=== PATIENT | male | born 1955 | race Caucasian/White ===

== ENCOUNTER → 2022-12-12 09:57 | Outpatient (BNVA) | payer MEDICARE, SELFPAY | PROVIDERS: PCP Internal Medicine; Visit Provider Psychiatry & Neurology Neurology | DX: R06.83 Snoring (principal); G47.10 Hypersomnia, unspecified; Z86.73 Personal history of transient ischemic attack (TIA), and cerebral infarction without residual deficits | CPT/HCPCS: 99202 ==

== ENCOUNTER → 2023-01-02 13:17 | Outpatient (REF) | payer MEDICARE, SELFPAY | LOC: HO.SL 13:17 | PROVIDERS: PCP Internal Medicine; Visit Provider Psychiatry & Neurology Neurology | DX: G47.10 Hypersomnia, unspecified (principal); R06.83 Snoring | CPT/HCPCS: 95806 ==

== ENCOUNTER 2023-02-21 14:50 | Outpatient (REF) | payer MEDICARE, SELFPAY ==
--- NOTE | ~2023-02-21 | US_ITS ---
EXAMINATION: US EXTRACRANIAL CAROTID DUPLEX, BILATERAL CLINICAL INFORMATION: Cerebral infarction. COMPARISON: None available. TECHNIQUE: Real-time ultrasound and Doppler techniques (integrating B-mode 2-D vascular images, Doppler spectral analysis and color-flow Doppler imaging) were utilized to interrogate the extracranial carotid arteries, the vertebral arteries and proximal subclavian arteries bilaterally. The degree of stenosis is determined by criteria similar to NASCET. FINDINGS: Right Side: 1. There is mild atherosclerotic plaque seen in the bifurcation/proximal ICA region. 2. The common carotid artery PSV proximally is 82 cm/s and distally 83 cm/s. 3. The proximal internal carotid artery velocities are 61 cm/s systolic and 14 cm/s diastolic. 4. The proximal external carotid artery PSV is 106 cm/s. 5. The vertebral artery shows antegrade flow. 6. The subclavian artery waveforms are normal. Left Side: 1. There is mild atherosclerotic plaque seen in the bifurcation/proximal ICA region. 2. The common carotid artery PSV proximally is 97 cm/s and distally 72 cm/s. 3. The proximal internal carotid artery velocities are 45 cm/s systolic and 11 cm/s diastolic. 4. The proximal external carotid artery PSV is 97 cm/s. 5. The vertebral artery shows antegrade flow. 6. The subclavian artery waveforms are normal. US/US carotid duplex BI IMPRESSION: 1. RIGHT: Minimal, non-hemodynamically significant stenosis of the proximal right internal carotid artery corresponding to a 0-49% stenosis by velocity criteria. 2. LEFT: Minimal, non-hemodynamically significant stenosis of the proximal left internal carotid artery corresponding to a 0-49% stenosis by velocity criteria.
== END 2023-02-21 14:51 | disposition home or self-care (01) ==
LOC: HO.US 14:50
PROVIDERS: PCP Internal Medicine; Visit Provider Psychiatry & Neurology Neurology
DX: I63.9 Cerebral infarction, unspecified (principal); I69.354 Hemiplegia and hemiparesis following cerebral infarction affecting left non-dominant side
CPT/HCPCS: 93880

== ENCOUNTER 2023-03-21 10:33 | Outpatient (AMB) | payer MEDICARE, SELFPAY ==
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
[2023-03-21 10:44] VITALS: BP 112/82; PULSE 76; O2SAT 98
== END 2023-03-21 11:20 | disposition home or self-care (01) ==
LOC: HO.HSMS 10:33
PROVIDERS: PCP Internal Medicine; Visit Provider Psychiatry & Neurology Neurology
DX: I69.354 Hemiplegia and hemiparesis following cerebral infarction affecting left non-dominant side (principal); R06.83 Snoring; G47.10 Hypersomnia, unspecified
CPT/HCPCS: 99214

== ENCOUNTER → 2023-03-21 10:33 | Outpatient (BNVA) | payer MEDICARE, SELFPAY | PROVIDERS: PCP Internal Medicine; Visit Provider Psychiatry & Neurology Neurology | DX: R06.83 Snoring (principal); G47.10 Hypersomnia, unspecified; Z86.73 Personal history of transient ischemic attack (TIA), and cerebral infarction without residual deficits; Z79.01 Long term (current) use of anticoagulants; Z79.82 Long term (current) use of aspirin | CPT/HCPCS: 99212 ==

== ENCOUNTER → 2023-04-08 20:30 | Outpatient (REF) | payer MEDICARE, SELFPAY | LOC: HO.SL 20:30 | PROVIDERS: PCP Internal Medicine; Visit Provider Psychiatry & Neurology Neurology | DX: G47.31 Primary central sleep apnea (principal); G47.10 Hypersomnia, unspecified; R06.83 Snoring | CPT/HCPCS: 95810 ==

== ENCOUNTER → 2023-04-08 21:58 | Outpatient (BNV) | payer MEDICARE, SELFPAY | PROVIDERS: PCP Internal Medicine; Visit Provider Psychiatry & Neurology Neurology | DX: I69.354 Hemiplegia and hemiparesis following cerebral infarction affecting left non-dominant side (principal); G47.37 Central sleep apnea in conditions classified elsewhere | CPT/HCPCS: 95810 ==

== ENCOUNTER 2023-07-25 09:16 | Outpatient (AMB) | payer MEDICARE, SELFPAY ==
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
[2023-07-25 09:29] VITALS: BP 152/80; PULSE 88; RESP 16; O2SAT 94; BMI 25.0
== END 2023-07-25 10:05 | disposition home or self-care (01) ==
PROVIDERS: PCP Internal Medicine; Visit Provider Psychiatry & Neurology Neurology
DX: I69.354 Hemiplegia and hemiparesis following cerebral infarction affecting left non-dominant side (principal); G47.31 Primary central sleep apnea
CPT/HCPCS: 99214

== ENCOUNTER → 2023-07-25 09:16 | Outpatient (BNVA) | payer MEDICARE, SELFPAY | PROVIDERS: PCP Internal Medicine; Visit Provider Psychiatry & Neurology Neurology | DX: Z86.73 Personal history of transient ischemic attack (TIA), and cerebral infarction without residual deficits (principal); R06.83 Snoring; G47.10 Hypersomnia, unspecified | CPT/HCPCS: 99212 ==

== ENCOUNTER 2024-02-06 08:59 | Outpatient (AMB) | payer MEDICARE, SELFPAY ==
[2024-02-06 09:20] VITALS: BP 116/68; PULSE 68; RESP 16; BMI 24.2
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
== END 2024-02-06 10:42 | disposition home or self-care (01) ==
PROVIDERS: PCP Internal Medicine; Visit Provider Psychiatry & Neurology Neurology
DX: I69.354 Hemiplegia and hemiparesis following cerebral infarction affecting left non-dominant side (principal); R06.3 Periodic breathing
CPT/HCPCS: 99214; G2211

== ENCOUNTER → 2024-02-06 08:59 | Outpatient (BNVA) | payer MEDICARE, SELFPAY | PROVIDERS: PCP Internal Medicine; Visit Provider Psychiatry & Neurology Neurology | DX: I69.354 Hemiplegia and hemiparesis following cerebral infarction affecting left non-dominant side (principal); R06.3 Periodic breathing | CPT/HCPCS: 99212 ==

== ENCOUNTER 2024-08-20 09:08 | Outpatient (AMB) | payer MEDICARE, SELFPAY ==
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
[2024-08-20 09:11] VITALS: BP 128/68; PULSE 8; O2SAT 82; BMI 24.8
== END 2024-08-20 09:49 | disposition home or self-care (01) ==
PROVIDERS: PCP Internal Medicine; Visit Provider Psychiatry & Neurology Neurology
DX: I69.354 Hemiplegia and hemiparesis following cerebral infarction affecting left non-dominant side (principal); G47.31 Primary central sleep apnea
CPT/HCPCS: 99214; G2211

== ENCOUNTER → 2024-08-20 09:08 | Outpatient (BNVA) | payer MEDICARE, SELFPAY | PROVIDERS: PCP Internal Medicine; Visit Provider Psychiatry & Neurology Neurology | DX: R06.3 Periodic breathing (principal); G47.31 Primary central sleep apnea; Z86.73 Personal history of transient ischemic attack (TIA), and cerebral infarction without residual deficits | CPT/HCPCS: 99212 ==

== ENCOUNTER → 2025-01-21 15:02 | Outpatient (REF) | payer MEDICARE, SELFPAY ==
--- OUTSIDE RECORDS SUMMARY | 2025-01-21 15:42 | XMS_ITS | Clinical Summary ---
Author Organization [facility] Address [address] [place] [address] Care Team Providers Care Cooker Loader Name Role Phone Steve Strange MD Primary Care Provider [phone] Allergies Active Allergy Reactions Criticality Noted Date Comments Azithromycin Other (See Comments) 01/31/2012 INTERFERED WITH COUMADIN Fenofibrate Unknown/Patient and Family Unable to Define Medium 11/28/2020 Myalgias Glipizide Unknown/Patient and Family Unable to Define Medium 08/25/2019 Iodinated Contrast Media Other (See Comments) 03/13/2017 Paralysis of cranial nerve 6 Other reaction(s): Unknown Other reaction(s): Unknown Penicillins Unknown/Patient and Family Unable to Define Medium 01/31/2012 Other reaction(s): Unknown unsure unsure Statins Unknown/Patient and Family Unable to Define Medium 11/28/2020 Myositis, had muscle breakdown Myositis, had muscle breakdown Medications acetaminophen (TYLENOL) 500 MG tablet Take 500 mg by mouth. Active ALPRAZolam (Xanax) 0.5 MG tablet Take 2 tabs three hrs before MRI. May repeat with 1 final tablet 90 minutes before MRI. 9 Active Ascorbic Acid (vitamin C) 1000 MG tablet Take 1,000 mg by mouth. Active atorvastatin (LIPITOR) 40 MG tablet Take 40 mg by mouth. 9 Active Blood Glucose Monitoring Suppl (ONE TOUCH ULTRA 2 DEVICE KIT) w/Device Kit Use as directed to check blood sugar 9 Active cholecalcifero l (CHOLECALCIFER OL) 25 MCG (1000 UT) tablet Take 1,000 Units by mouth. 3 Active Cholecalcifero l (Vitamin D) 50 MCG (2000 UT) tablet Take by mouth. Acti ve clotrimazole-b etamethasone (LOTRISONE) cream 9 Active diclofenac (VOLTAREN) 1 % gel Apply 4 g topically. 9 Active fenofibrate (TRICOR) 145 MG tablet Take 145 mg by mouth. 9 Active folic acid (FOLVITE) 1 MG tablet Take 1,000 mcg by mouth. 9 Active gabapentin (NEURONTIN) 300 MG capsule Take 300 mg by mouth. 9 Active glucose blood (ONETOUCH ULTRA BLUE TEST) test strip 1 strip. 9 Active OneTouch Delica Lancets Fine Misc lancet Apply 1 Stick topically. 8 Active metFORMIN (FORTAMET) 1000 MG (OSM) 24 hr tablet Take 1,000 mg by mouth. Active Multiple Vitamin (multivitamin) capsule Take 1 capsule by mouth. Active multivitamin with minerals Tab tablet Take by mouth. Acti ve propafenone (RYTHMOL) 225 MG tablet Take 225 mg by mouth 3 times daily (every 8 hours). 9 Active tamsulosin (FLOMAX) 0.4 MG capsule 9 Active tiZANidine (ZANAFLEX) 4 MG tablet TAKE 1 TABLET BY MOUTH EVERY 6 HOURS NEEDED MUSCLE SPASMS FOR UP TO 10 DAYS 9 Active warfarin (Coumadin) 5 MG tablet Take 5 mg by mouth. 9 Active amLODIPine (NORVASC) 2.5 MG tablet Take 1 tablet by mouth daily. Active Eliquis 5 MG tablet as directed Orally twice a day 4 Active aspirin 81 MG chewable tablet Chew 81 mg daily. Ac tive azelastine (Azelastine HCl) 0.1 % nasal spray 1 puff in each nostril Nasally Twice a day 4 Active Repatha SureClick 140 MG/ML auto-injector as directed Subcutaneous Active finasteride (PROSCAR) 5 MG tablet Take 5 mg by mouth. Active lisinopril (PRINIVIL,ZeST RIL) 20 MG tablet Take 1 tablet by mouth daily. 4 Active loratadine (CLARITIN) 10 MG tablet Take 10 mg by mouth daily. Active Ozempic, 0.25 or 0.5 MG/DOSE, 2 MG/3ML prefilled pen injection INJECT 0.5 MG SUBCUTANEOUSLY EVERY WEEK, ROTATE INJECTION SITES Active triamcinolone (NASACORT AQ) 55 MCG/ACT Aerosol nasal sprayIndicatio ns:Chronic rhinitis USE 2 SPRAYS IN EACH NOSTRIL ONCE DAILY FOR 30 DAYS 16.9 each 1 5 Active Active Problems Problem Noted Date Diagnosed Date Anxiety 07/30/2024 Chronic nasal congestion 07/30/2024 Dyshidrotic eczema 07/30/2024 Lung nodule 07/30/2024 Nephrolithiasis 07/30/2024 MINERVA (obstructive sleep apnea) 07/30/2024 Ventricular hypokinesis 07/30/2024 Amblyopia 07/22/2024 Overview (07/22/2024): IMO update Cataract 07/22/2024 Overview (07/22/2024): left eye History of CVA (cerebrovascular accident) 2023 Overview (07/22/2024): February 25 2002, received tPa Hyperlipidemia 07/22/2024 Type 2 diabetes mellitus with cataract 1 Microalbuminuria 10/18/2020 Cholesterol embolism of lower extremity, left Small vessel disease 08/08/2019 Impairment of balance 07/20/2019 Benign prostatic hyperplasia with lower urinary tract symptoms 07/20/2019 Degenerative disc disease, cervical 07/20/2019 Lumbar radiculopathy 07/20/2019 Smoker 07/06/2019 DDD (degenerative disc disease), cervical 2018 Foraminal stenosis of lumbar region 07/01/2019 Lumbosacral pain 07/01/2019 Right leg pain 07/01/2019 Stage 3 chronic kidney disease 07/20/2015 Paroxysmal atrial fibrillation 05/11/2015 Late effects of CVA (cerebrovascular accident) 0 04/20/2015 Type II or unspecified type diabetes mellitus with renal manifestations, not stated as uncontrolled(250.40) 04/20/2015 Late effects of cerebrovascular disease 04/20/20 15 DM (diabetes mellitus), type 2 with renal compli cations 04/20/2015 Overview (07/30/2024): Following with Apple Villar DPM at [facility]. Foot exam done on 05/02/2021 Thyroid nodule 02/22/2015 Right ankle pain 06/22/2014 DJD (degenerative joint disease), lumbar 014 Torn ACL 03/18/2014 Overview (07/22/2024): Following slip and fall 11/15/13. Meniscal injury too. NEOs Bone spur of acromioclavicular joint 08/25/2013 Cervical stenosis of spinal canal 08/25/2013 Encounters Date Type Department Care Team Description 01/13/2025 Scanned Document [facility] [address], [place] [address] Amandeep Almonte MD 11/01/2024 Refill [facility] [place] [address] [place] [address] Amandeep Almonte MD Chronic rhinitis (Primary Dx) from Last 3 Months Immunizations Immunization Administration Dates Next Due Pneumococcal Conjugate 13-Valent 04/20/2015 Pneumococcal Polysaccharide 23-Valent 07/09/2012 Tdap 07/09/2012 Social History Tobacco Use Types Packs/Day Years Used Date Smoking Tobacco: Every Day Cigarettes Passive Smoke Exposure: Current Smokeless Tobacco: Never Tobacco Cessation:Ready to Q uit: Not Asked; Counseling Given: Not Answered Alcohol Use Standard Drinks/Week Comments Yes 0 (1 standard drink = 0.6 oz pur e alcohol) Sex and Gender Information Value Date Recorded Sex Assigned at Not on file Legal Sex Male 7:26 PM EST Gender Identity Not on file Sexual Orientation Not on file Last Filed Vital Signs Vital Sign Reading Time Taken Comments Blood Pressure - - Pulse - - Temperature - - Respiratory Rate - - Oxygen Saturation - - Inhaled Oxygen Concentration - - Weight 81.6 kg (180 lb) 07/30/2024 9:15 AM EST Height 180.3 cm (5' 11 ) 07/30/2024 9:15 AM EST Body Mass Index 25.1 07/30/2024 9:15 AM EST Plan of Treatment Upcoming Encounters Date Type Department Care Team (Late st Contact Info) Description 01/28/2025 10:15 AM EDT Office Visit [facility] [place] [address] [facility], [place] [address] Amandeep Almonte MD [address] [facility] [address] [place] [address] Health Maintenance Due Date Last Done Comments Hepatitis C Virus Screening 1955 Creatinine with GFR 1963 Foot Exam 1963 Hemoglobin A1C 1963 Lipid Panel 1963 Ophthalmology Exam 1963 Microalbumin/Creatinine Rati o Urine 1971 Colonoscopy 1998 Zoster (Shingles) Vaccine (1 of 2) 2003 RSV Vaccine 60 years and old er and Patients (1 - Risk 60-74 years 1-dose series) 2013 Abdominal Aortic Aneurysm (AAA) Screening 2018 Pneumococcal Vaccines 50+ (3 of 3 - PCV20 or PCV21) 04/20/2020 04/20/2015, 07/09/2012 DTaP/Tdap/Td Vaccines (2 - T d or Tdap) 07/09/2022 07/09/2012 COVID-19 Vaccine (4 - 2023-2 5 season) 2024 08/22/2021, 12/14/2020, 11/23/2020 Influenza Vaccine 04/09/2025 Hepatitis B Vaccines Aged Out No long er eligible based on patient's age to complete this topic Insurance MEDICARE PART A & B [facility]- Care Teams Cooker Loader Relationship Specialty Start Date End Date Steve Strange [facility] [address] [facility] [id number] P[facility] - General 07/22/24
--- OUTSIDE RECORDS SUMMARY | 2025-01-21 15:42 | XMS_ITS ---
Author Organization [facility] Address [address] [facility] [address] [place] [address] Care Team Providers Care Train Inspector Name Role Phone Steve Strange Primary Care Provider UnavailAPPLE Velasquez Unavailable [phone] Allergies Allergen (clinical drug ingredient) Drug/Non Drug Allergy documented on EMR Reaction Allergy Type Onset Date Status IV Contrast (uncoded) Unknown Allergy Active azithromycin Azithromycin Unknown Drug Allergy A ctive Substance with penicillin structure and antibacterial mechanism of action (substance) Penicillins Unknown Drug Allergy Active Substance with 4-mwdcwtm-0-methylgluta ryl-coenzyme A reductase inhibitor mechanism of action (substance) Statins Unknown Drug Allergy Active Results Component Value Reference Range Notes Anaerobic/Aerobic/Gram Stain -[id number] Reviewed date:01/04/2025 02:21:41 PM Interpretation: Performing Lab:[facility], [address], [address], [place], Phone - [phone], Director - [facility] Notes/Report: Clinical Information:SRC: SOURCE NOT INDICATED Clinical Information:SRC: SOURCE NOT INDICATED Clinical Information:SRC: SOURCE NOT INDICATED Clinical Information:SRC: SOURCE NOT INDICATED Anaerobic Culture Final report Aerobic Culture Final report Gram Stain Result Final report Result 1 No anaerobic gr owth in 72 hours. Result 1 Skin juhi isolated Result 1 No white blood cells seen. Result 2 No organisms seen REASON FOR VISIT 1 month f/u Medications Medication SIG (Take, Route, Frequency, Duration) Notes Start Date End Date Status amLODIPine Besylate 10 MG 1 tablet Orally Once a day Active Lidocaine 5 % 1 patch remove after 12 hours Externally to left foot Once a day for 30 days 09/06/2020 Not-Taking Doxycycline Monohydrate 100 MG 1 capsule Orally every 12 hrs for 7 days 08/16/2021 Not-Taking Nasacort Allergy 24HR 55 MCG/ACT 1 spray in each nostril Nasally Once a day Active Diclofenac Sodium 1 % as directed Transdermal Not-Taking Acetaminophen 500 MG 1 capsule as needed Orally every 6 hrs Not-Taking dexAMETHasone Sodium Phosphate 20 MG/5ML as directed Iontophoresis Once a day for 14 days 01/31/2024 Not-Taking Propafenone HCl 225 MG 1 tablet Orally every 8 hrs Not-Taking Doxycycline Monohydrate 100 MG 1 capsule Orally every 12 hrs for 7 days 07/12/2023 Not-Taking Azelastine HCl 137 MCG/SPRAY 1 puff in each nostril Nasally Twice a day Not-Taking Multivitamin - 1 tablet Orally Once a day Active Doxycycline Monohydrate 100 MG 1 capsule Orally every 12 hrs for 7 days 12/24/2024 Active tiZANidine HCl 2 MG 1 tablet at bedtime as needed Orally Once a day Not-Taking Doxycycline Monohydrate 100 MG 1 capsule Orally every 12 hrs for 7 days 12/29/2024 Active Doxycycline Not-Taki ng Folic Acid 1 MG 1 tablet Orally Once a day Active Cholecalciferol 25 MCG (1000 UT) 1 capsule Orally Once a day Active Repatha SureClick 140 MG/ML as directed Subcutaneous every 2 weeks Active Ozempic weekly Active metFORMIN HCl 1000 MG 1 tablet with a me al Orally twice a day Active Finasteride Active Lisinopril 20 MG 1 tablet Orally Once a day Active Eliquis 5 MG as directed Orally twice a day Active Tamsulosin HCl 0.4 MG 1 capsule Orally Once a day Active Tylenol 8 Hour 650 MG 2 tablets as neede d Orally every 8 hrs Active Vital Signs Height 71 in 12/31/2024 Weight 174.3 lbs 12/31/2024 BMI 24.31 kg/m2 12/31/2024 Encounters Encounter Location Date Provider Diagnosis [facility] [address] [facility] [address] [place] [address] 12/31/2024 APPLE GARCIA Contusion of lesser toe of left foot with damage to nail, initial encounter S90.222A and Cellulitis of toe of left foot L03.032 Assessments Encounter Date Diagnosis (ICD Code) Assessment Notes Treatment Notes Treatment Clinical Notes Section Notes 12/31/2024 Contusion of lesser toe of left foot with damage to nail, initial encounter (ICD-10 - S90.222A) Patient examined and evaluated. He sustained a contusion like injury to the tip of the left 2nd toe causing some trauma to the nail plate and cellulitis. He is on his 2nd course of doxycycline and is doing well with this. I took some cultures today to assess any other bacterial infection. I advised continued bandaging and avoiding the hot tub for a few more weeks. I will recheck the area in 2-3 weeks or sooner if needed. 12/31/2024 Cellulitis of toe of left foot (ICD-10 - L03.032) Plan Of Treatment Treatment Notes Assessment Notes Contusion of lesser toe of l eft foot with damage to nail, initial encounter Patient examined and evaluated. He sustained a contusion like injury to the tip of the left 2nd toe causing some trauma to the nail plate and cellulitis. He is on his 2nd course of doxycycline and is doing well with this. I took some cultures today to assess any other bacterial infection. I advised continued bandaging and avoiding the hot tub for a few more weeks. I will recheck the area in 2-3 weeks or sooner if needed. Next Appt Details Follow Up: 3 Weeks, Reason: Provider Name:APPLE GARCIA, 02/11/2025 01:00:00 PM, [address], [address], Progress Notes * Alexander SANDHU RDOB:[birth year] (69 yo M)Acc No.[id number]:12/31/2024 Progress Note Patient:?Alexander SANDHU R Provider:?Apple Lindsey DPM :1955???Age:69 Y???Sex:Male Stu e:12/31/2024 Address:[address] [place], [place] [id number] Pcp:Steve Strange Subjective: * Chief Complaints: * ???1 month f/u * HPI: ???Foot & Ankle:?Mr. Sandhu presents for a new problem visit. He is here with his . He jammed his left 2nd toe while on a trip to [place]. He states it happened while he was getting out of a hot tub. He noticed pain and swelling shortly after followed by some redness. He called the office and I was able to send a course of doxycycline up to [place] for him to take. He states this helped calm the pain and redness down. There is still some mild swelling and redness and he has started another course of the antibiotic. He has not issues with taking the medication. His has been bandaging the toe. He has avoided the hot tub. * ROS:?General/Constitutional:?Denies?Chills.?Denies?Fever.?Denies?Headache.?Cardiovascular:?Denies?Chest pain.?Denies?Claudication.?Denies?Dizziness.?Fluid accumulation in the legs?admits to swelling both legs.?Musculoskeletal:?Patient complaining of?left heel pain, chronic.?Admits?Back problems.?Admits?Leg cramps.?Admits?Muscle aches.?Denies?Swollen joints.?Peripheral Vascular:?Admits?Decreased sensation in extremities.?Denies?Pain/cramping in legs after exertion.?Denies?Ulceration of feet.?Skin:?Denies?Dry skin.?Denies?Itching.?Admits?Nail changes.?Denies?Rash.?Denies?Skin lesion(s).? * Medical History:? * Surgical History:?right ankl e surgery 2016lumbar spine decompression 2020Historical left knee surgery carpal tunnel release * Hospitalization/Major Diagno stic Procedure:?[facility] for right subcortical infarct 2020 * Family History:? Denies family history for inflammatory arthropathy, DVT. PEs. * Social History:?Current everyday smoker pack a day Alcohol use; yes, not regularly No illicit Drug use. Lives with . * Medications:?TakingNasacort Allergy 24HR 55 MCG/ACT Aerosol 1 spray in each nostril Nasally Once a day amLODIPine Besylate 10 MG Tablet 1 tablet Orally Once a day Finasteride Tamsulosin HCl 0.4 MG Capsule 1 capsule Orally Once a day Tylenol 8 Hour 650 MG Tablet Extended Release 2 tablets as needed Orally every 8 hrs Lisinopril 20 MG Tablet 1 tablet Orally Once a day Eliquis 5 MG Tablet as directed Orally twice a day Repatha SureClick 140 MG/ML Solution Auto-injector as directed Subcutaneous , Notes to Pharmacist: every 2 weeksHelen , Notes to Pharmacist: weeklymetFORMIN HCl 1000 MG Tablet 1 tablet with a meal Orally twice a day Folic Acid 1 MG Tablet 1 tablet Orally Once a day Cholecalciferol 25 MCG (1000 UT) Capsule 1 capsule Orally Once a day Multivitamin - Tablet 1 tablet Orally Once a day Doxycycline Monohydrate 100 MG Capsule 1 capsule Orally every 12 hrs Doxycycline Monohydrate 100 MG Capsule 1 capsule Orally every 12 hrs Taking Nasacort Allergy 24HR 55 MCG/ACT Aerosol 1 spray in each nostril Nasally Once a day Taking amLODIPine Besylate 10 MG Tablet 1 tablet Orally Once a day Taking Finasteride Taking Tamsulosin HCl 0.4 MG Capsule 1 capsule Orally Once a day Taking Tylenol 8 Hour 650 MG Tablet Extended Release 2 tablets as needed Orally every 8 hrs Taking Lisinopril 20 MG Tablet 1 tablet Orally Once a day Taking Eliquis 5 MG Tablet as directed Orally twice a day Taking Repatha SureClick 140 MG/ML Solution Auto-injector as directed Subcutaneous , Notes to Pharmacist: every 2 weeksTaking Helen , Notes to Pharmacist: weeklyTaking metFORMIN HCl 1000 MG Tablet 1 tablet with a meal Orally twice a day Taking Folic Acid 1 MG Tablet 1 tablet Orally Once a day Taking Cholecalciferol 25 MCG (1000 UT) Capsule 1 capsule Orally Once a day Taking Multivitamin - Tablet 1 tablet Orally Once a day Taking Doxycycline Monohydrate 100 MG Capsule 1 capsule Orally every 12 hrs Taking Doxycycline Monohydrate 100 MG Capsule 1 capsule Orally every 12 hrs Not-TakingDoxycycline tiZANidine HCl 2 MG Tablet 1 tablet at bedtime as needed Orally Once a day dexAMETHasone Sodium Phosphate 20 MG/5ML Solution as directed Iontophoresis Once a day Azelastine HCl 137 MCG/SPRAY Solution 1 puff in each nostril Nasally Twice a day Propafenone HCl 225 MG Tablet 1 tablet Orally every 8 hrs Doxycycline Monohydrate 100 MG Capsule 1 capsule Orally every 12 hrs Acetaminophen 500 MG Capsule 1 capsule as needed Orally every 6 hrs Diclofenac Sodium 1 % Gel as directed Transdermal Lidocaine 5 % Patch 1 patch remove after 12 hours Externally to left foot Once a day Doxycycline Monohydrate 100 MG Capsule 1 capsule Orally every 12 hrs Medication List reviewed and reconciled with the patientNot-Taking Doxycycline Not-Taking tiZANidine HCl 2 MG Tablet 1 tablet at bedtime as needed Orally Once a day Not-Taking dexAMETHasone Sodium Phosphate 20 MG/5ML Solution as directed Iontophoresis Once a day Not-Taking Azelastine HCl 137 MCG/SPRAY Solution 1 puff in each nostril Nasally Twice a day Not-Taking Propafenone HCl 225 MG Tablet 1 tablet Orally every 8 hrs Not-Taking Doxycycline Monohydrate 100 MG Capsule 1 capsule Orally every 12 hrs Not-Taking Acetaminophen 500 MG Capsule 1 capsule as needed Orally every 6 hrs Not-Taking Diclofenac Sodium 1 % Gel as directed Transdermal Not-Taking Lidocaine 5 % Patch 1 patch remove after 12 hours Externally to left foot Once a day Not- Taking Doxycycline Monohydrate 100 MG Capsule 1 capsule Orally every 12 hrs Medication List reviewed and reconciled with the patient * Allergies:?AzithromycinIV Co ntrastPenicillinsStatinsno[Allergies Verified] Objective: * Vitals:?Wt:174.3lbs, Ht: 71 in, BMI:24.31Index, Ht-cm: 180.34, Wt-k.06 kg. * Examination: ???General Examination: ???This is an elderly male. Alert and oriented today and in no acute distress. Patient comes in ambulating in high top sneakers with gel heel cups. No cane or walker today. Breathing is regular and unlabored while sitting. Affect is pleasant and cooperative. No unusual anxiety or depression noted. Hearing intact to spoken word. No evidence of visual impairment that would impact self care or ambulation. He has nonpalpable DP and PT pulses bilaterally. On doppler examination the patient has nondopplerable DP and monophasic PT pulse on the left. The right DP and PT are biphasic on doppler exam. There is dependent rubor to both feet L>R. Skin is atrophied to both lower extremities and hair growth is diminished. No peripheral edema present. There is no tenderness with pressure over the distal fibula on the left. No obvious gross deformity to the left ankle. Plantar fat pad atrophy bilaterally, left heel is most severe. There is a left hallux extensus deformity due to neurological changes. The toenail has increased thickness and there is a small spicule in the proximal medial border.? The left 2nd toe is elongated and has slight flexion at the DIPJ. He has some mild edema and localized erythema to the dorsal aspect of the left 2nd toe from the proximal nail fold to the base of the toe. No streaking erythema. The nail is loosened with dry blood underneath. There is no purulence or fluctuance. Mild tenderness to the nail plate. There is a rigid pes planovalgus deformity present to the right with benign cicatrix from previous surgery. There is tenderness around the right subtalar and ankle joints with restricted range of motion, this is chronic and stable for him. Significant muscle atrophy present to both lower extremities. Assessment: * Assessment: 1.?Contusion of lesser toe o f left foot with damage to nail, initial encounter - S90.222A (Primary)???2.?Cellulitis of toe of left foot - L03.032??? Plan: * Treatment: 2.?Cellulitis of toe of left foot?LAB: Anaerobic/Aerobic/Gram Stain-[id number] (Collection Date & Time - 12/31/2024) * Labs:? * ?Lab: Anaerobic/Aerobic/ Gram Stain-[id number] (Collection Date & Time - 12/31/2024) ? Value Reference Range ?Anaerobic Culture Preliminary report - * ?Aerobic Culture Final report - * ?Result 1 Skin juhi isolated - * Procedure Codes:? * Follow Up:?3 Weeks * Billing Information: * Visit Code:? 74301 Office Visit, Est Pt., Level 3. * Procedure Codes:? * Sign off status: Completed true * Provider:?Apple Lindsey DPAndre Date:?12/31 Generated for Avi balderas/Ronda/Chintanitting on:?01/21/2025 03:42 PM EDT History and Physical Notes * Examination Category Sub-Category Detail Notes Category Not es General Examination This is an elderly male. Alert and oriented today and in no acute distress. Patient comes in ambulating in high top sneakers with gel heel cups. No cane or walker today. Breathing is regular and unlabored while sitting. Affect is pleasant and cooperative. No unusual anxiety or depression noted. Hearing intact to spoken word. No evidence of visual impairment that would impact self care or ambulation. He has nonpalpable DP and PT pulses bilaterally. On doppler examination the patient has nondopplerable DP and monophasic PT pulse on the left. The right DP and PT are biphasic on doppler exam. There is dependent rubor to both feet L>R. Skin is atrophied to both lower extremities and hair growth is diminished. No peripheral edema present. There is no tenderness with pressure over the distal fibula on the left. No obvious gross deformity to the left ankle. Plantar fat pad atrophy bilaterally, left heel is most severe. There is a left hallux extensus deformity due to neurological changes. The toenail has increased thickness and there is a small spicule in the proximal medial border. The left 2nd toe is elongated and has slight flexion at the DIPJ. He has some mild edema and localized erythema to the dorsal aspect of the left 2nd toe from the proximal nail fold to the base of the toe. No streaking erythema. The nail is loosened with dry blood underneath. There is no purulence or fluctuance. Mild tenderness to the nail plate. There is a rigid pes planovalgus deformity present to the right with benign cicatrix from previous surgery. There is tenderness around the right subtalar and ankle joints with restricted range of motion, this is chronic and stable for him. Significant muscle atrophy present to both lower extremities.
--- OUTSIDE RECORDS SUMMARY | 2025-01-21 15:42 | XMS_ITS ---
Author Name [facility] Organization Unknown History of Medication Use Medication Directions Dispensed Refills Start Date End Date Stat us triamcinolone (NASACORT AQ) 55 MCG/ACT Aerosol nasal spray USE 2 SPRAYS IN EACH NOSTRIL ONCE DAILY FOR 30 DAYS 11/02/2024 active Eliquis 5 MG tablet as directed Orally twice a day 04/13/2024 active Blood Glucose Monitoring Suppl (ONE TOUCH ULTRA 2 DEVICE KIT) w/Device Kit Use as directed to check blood sugar 08/07/2019 active ALPRAZolam (Xanax) 0.5 MG tablet Take 2 tabs three hrs before MRI. May repeat with 1 final tablet 90 minutes before MRI. 07/06/2019 active fenofibrate (TRICOR) 145 MG tablet Take 145 mg by mouth. 01/31/2019 active tiZANidine (ZANAFLEX) 4 MG tablet TAKE 1 TABLET BY MOUTH EVERY 6 HOURS NEEDED MUSCLE SPASMS FOR UP TO 10 DAYS 01/26/2019 active clotrimazole-betamethas one (LOTRISONE) cream 01/23/2019 act [place] OneTouch Delica Lancets Fine [facility] lancet Apply 1 Stick topically. 01/10/2018 active cholecalciferol (CHOLECALCIFEROL) 25 MCG (1000 UT) tablet Take 1,000 Units by mouth. 03/16/2013 active finasteride (PROSCAR) 5 MG tablet Take 5 mg by mouth. active Multiple Vitamin (multivitamin) capsule Take 1 capsule by mouth. active Problems Problem Status Onset Date Problem Type Date of Resolution Source Lung nodule active 2024-07-30 ProblemAct [facility] DM (diabetes mellitus), type 2 with renal complications active 2015-04-20 ProblemAct [facility] Cholesterol embolism of lower extremity, left active 2020-10-12 ProblemAct [facility] Chronic nasal congestion active 2024-07-30 ProblemAct [facility] Microalbuminuria active 2020-10-18 ProblemAct [facility] Impairment of balance active 2019-07-20 ProblemAct [facility] Torn ACL active 2014-03-18 ProblemAct [facility] Dyshidrotic eczema active 2024-07-30 ProblemAct [facility] Thyroid nodule active 2015-02-[address] Benign prostatic hyperplasia with lower urinary tract symptoms active 2019-07-20 ProblemAct [facility] Stage 3 chronic kidney disease active 2015-07-20 ProblemAct [facility] Hyperlipidemia active 2024-07-[address] Small vessel disease active 2019-08-08 ProblemAct [facility] Type II or unspecified type diabetes mellitus with renal manifestations, not stated as uncontrolled(250.40) active 2015-04-20 ProblemAct [facility] MINERVA (obstructive sleep apnea) active 2024-07-30 ProblemAct [facility] Chronic rhinitis active EncounterDiagnosisAct [facility] Paroxysmal atrial fibrillation active 2015-05-11 ProblemAct [facility] Right ankle pain active 2014-06-22 ProblemAct [facility] Lumbosacral pain active 2019-07-01 ProblemAct [facility] Bone spur of acromioclavicular joint active 2013-08-25 ProblemAct [facility] T Type 2 diabetes mellitus with cataract active 2021-05-22 ProblemAct [facility] Nephrolithiasis active 2024-07-30 ProblemAct [facility] DJD (degenerative joint disease), lumbar active 2014-06-22 ProblemAct [facility] Anxiety active 2024-07-30 ProblemAct [facility] Right leg pain active 2019-07-[address] Amblyopia active 2024-07-22 ProblemAct [facility] Foraminal stenosis of lumbar region active 2019-07-01 ProblemAct [facility] Smoker active 2019-07-06 ProblemAct [facility] Degenerative disc disease, cervical active 2019-07-20 ProblemAct [facility] Ventricular hypokinesis active 2024-07-30 ProblemAct [facility] Cervical stenosis of spinal canal active 2013-08-25 ProblemAct [facility] History of CVA (cerebrovascular accident) active 2024-07-22 ProblemAct [facility] Cataract active 2024-07-22 ProblemAct [facility] Late effects of CVA (cerebrovascular accident) active 2015-04-20 ProblemAct [facility] Lumbar radiculopathy active 2019-07-20 ProblemAct [facility] Immunizations Vaccine Date Source Lot Number Status Pneumococcal Conjugate Valent 04/20/2015 [facility] [id number] completed Pneumococcal Polysaccharide 23-Valent 07/09/2012 [facility] [id number] completed Tdap 07/09/2012 [facility] [id number] completed Encounters Encounter Type Encounter Reason Primary Diagnosis Location Date Ambulatory Hearing Loss Hearing Loss [facility] 07/30/2024 Ambulatory [facility] 07/30/2024 Ambulatory [facility] 06/19/2024 Care Team Organization Name Specialty Phone Email Start Date End Da te [facility] 01/02/2025 [facility] 08/01/2024 025 [facility] 07/22/2024
--- OUTSIDE RECORDS SUMMARY | 2025-01-21 15:42 | XMS_ITS | Clinical Summary ---
Author Organization [place] [facility] Address [address] [facility] [place], [place] [address] Phone Care Team Providers Care Arcade Games Mechanic Name Role Phone Steve Strange MD Primary Care Provider [phone] Allergies Active Allergy Reactions Criticality Noted Date Comments Azithromycin 01/31/2012 INTERFERED WITH COUMADIN Fenofibrate 11/28/2020 Myalgias Glipizide 08/25/2019 Iodinated Contrast Media Other 03/13/2017 Paralysis of cranial nerve 6 DEVELOPED SEVERE HEADACHE FROM CT CONTRAST IN THE Paralysis of cranial nerve 6 Penicillin G 02/20/2022 Spyaiki-Esd-Cxe Reductase Inhibitors Unknown Medium 11/28/2020 Myositis, had muscle breakdown Myositis, had muscle breakdown Myositis, had muscle breakdown Myositis, had muscle breakdown Medications apixaban (Eliquis) 5 mg tablet Take 1 tablet (5 mg total) by mouth 2 (two) times a day. 4 Active lisinopriL (PRINIVIL,ZESTRI L) 20 mg tablet Take 1 Tablet by mouth daily. Active finasteride (PROSCAR) 5 mg tablet Take 1 Tablet by mouth daily. Active tamsulosin (FLOMAX) 0.4 mg 24 hr capsule Take 1 Capsule by mouth daily. 3 Active OneTouch Ultra Test test strip Use 1 strip to test sugars 3 times a day. 2 Active folic acid (FOLVITE) 1 mg tablet Take 1 tablet (1,000 mcg total) by mouth 1 (one) time each day. 2 Active cholecalciferol (VITAMIN D-3) 50 mcg (2,000 unit) tablet Take by mouth daily. Active metFORMIN (GLUCOPHAGE) 1,000 mg tablet Take 1,000 mg by mouth 2 (two) times a day with meals 2 Active semaglutide (Ozempic) 0.25 mg or 0.5 mg(2 mg/1.5 mL) injection pen Inject 0.5 mg under the skin every 7 (seven) days. 2 Active aspirin 81 mg chewable tablet Take 81 mg by mouth daily. Active diabetic supplies, [place] BLOOD GLUCOSE MONITORING SUPPL (ONE TOUCH ULTRA 2 DEVICE KIT) W/DEVICE KIT Use as directed to check blood sugar 9 Active diabetic supplies, [place] ONETOUCH DELICA LANCETS FINE [facility] Apply 1 Stick topically 2 times daily. 9 Active acetaminophen (TYLENOL) 500 mg tablet Take 500 mg by mouth every 6 hours as needed. Active MULTIVITAMIN ORAL Take by mouth daily. Active amLODIPine (NORVASC) 10 mg tablet Take by mouth 1 (one) time each day. Active triamcinolone (NASACORT) 55 mcg nasal inhaler Administer 2 sprays into each nostril 1 (one) time each day. Active evolocumab (Repatha SureClick) 140 mg/mL pen injector injectionIndicat ions:Peripheral vascular disease, unspecified (CMS/HCC V24),Personal history of transient ischemic attack (TIA), and cerebral infarction without residual deficits Inject 1 mL (140 mg total) under the skin every 14 (fourteen) days. 6 mL 3 5 Active Active Problems Problem Noted Date Diagnosed Date Personal history of transien t ischemic attack (TIA), and cerebral infarction without residual deficits 11/19/2024 Assessment & Plan (11/19/2024 5:06 PM EDT): No new or worsening neurologic deficits. ontinue with amlodipine, apixaban, aspirin, lisinopril and evolocumab. We discussed risk reduction through lifestyle choices including healthy diet, routine exercise and weight management as well as tobacco cessation. Orders: evolocumab (Repatha SureClick) 140 mg/mL pen injector injection; Inject 1 mL (140 mg total) under the skin every 14 (fourteen) days. Hypertension 11/19/2024 Assessment & Plan (11/19/2024 1:19 PM EDT): Controlled. Continue with amlodipine, lisinopril. Amblyopia 10/19/2024 Overview (10/19/2024): IMO update Cataract 10/19/2024 Overview (10/19/2024): left eye Hyperlipidemia 10/19/2024 Assessment & Plan (11/19/2024 1:19 PM EDT): February 2022 - LDL 16. Continue with evolocumab. Lumbar radiculopathy 11/21/2021 Lumbar spinal stenosis 05/22/2021 Peripheral neuropathy 05/22/2021 Type 2 diabetes mellitus wit h cataract ([facility] V24, [facility] V28) 05/22/2021 DM (diabetes mellitus), type 2 with neurological complications ([facility] V24, [facility] V28) 05/18/2021 Overview (10/19/2024): Following with Apple Villar DPAndre at [facility]. Foot exam done on 05/02/2021 Microalbuminuria 10/18/2020 Cholesterol embolism of lowe r extremity, left ([facility] V24, [facility] V28) 10/12/2020 Current every day smoker 08/08/2019 Peripheral vascular disease, unspecified ([facility]/ [facility] V24) 08/08/2019 Overview (11/19/2024): Manifested as left lower extremity claudication December 2021 -atherosclerotic changes with severe narrowing of the mid popliteal artery bilaterally, bilateral tibial disease maximally affecting segments with occluded posterior tibial arteries and occlusion of the left dorsalis pedis artery Assessment & Plan (11/19/2024 5:06 PM EDT): Stable left lower extremity claudication. Continue with amlodipine, apixaban, aspirin, lisinopril and evolocumab. We discussed risk reduction through lifestyle choices including healthy diet, routine exercise and weight management as well as tobacco cessation. Orders: evolocumab (Repatha SureClick) 140 mg/mL pen injector injection; Inject 1 mL (140 mg total) under the skin every 14 (fourteen) days. Benign prostatic hyperplasia with lower urinary tract symptoms 07/20/2019 CKD (chronic kidney disease) stage 3, GFR 30-59 ml/min ([facility] V24, [facility] V28) 07/20/2015 Paroxysmal atrial fibrillation ([facility] V24, [facility] V28) 05/11/2015 Assessment & Plan (11/19/2024 5:06 PM EDT): Paroxysmal atrial fibrillation. Asymptomatic. CHADSVASc - 7. Continue with apixaban. Orders: ECG 12 lead Late effects of CVA (cerebrovascular accident) 0 04/20/2015 DM (diabetes mellitus), type 2 with renal complications ([facility] V24, [facility] V28) 04/20/2015 Thyroid nodule 02/22/2015 DJD (degenerative joint disease), lumbar 014 Bone spur of acromioclavicular joint 08/25/2013 Spinal stenosis in cervical region 08/25/2013 Encounters Date Type Department Care Team Description 11/13/2024 10:10 AM EST Office Visit [facility] [address] [place] [address] Gilberto Chavez NP Paroxysmal atrial fibrillation ([facility] V24, [facility] V28) (Primary Dx); Peripheral vascular disease, unspecified ([facility] V24); Personal history of transient ischemic attack (TIA), and cerebral infarction without residual deficits; Hyperlipidemia, unspecified hyperlipidemia type; Hypertension, unspecified type from Last 3 Months Immunizations Name Administration Dates Next Due Pneumococcal conjugate 13 va lent (Prevnar 13, PCV13) 2mo and older 04/20/2015 Pneumococcal polysaccharide 23 valent (Pneumovax 23) 2yo and older 07/09/2012 Tdap Tetanus diptheria acell ular pertussis (Boostrix; Adacel) 7yo and older 07/09/2012 Surgical History Surgery Date Site/Laterality Comments LITHOTRIPSY PROCEDURE: HISTORICAL LITHOTRIPSY KNEE SURGERY Left PROCEDURE: HISTORICAL KNEE SURGERY OTHER SURGICAL HISTORY 06/28/2016 Right PROCEDURE: [place] CAPSUL MIDFOOT W/PST TALOTIBL CAPSUL&TDN LNGTH BACK SURGERY 05/04/2021 Right PROCEDURE: HISTORICAL BACK SURGERY; COMMENT: L4-5 hemilaminotomy, partial facetectomy Medical History Medical History Date Comments Diabetes mellitus type II, uncontrolled DX:Diabetes mellitus type II , uncontrolled Cataract DX:Cataract; COM MENT: left eye Amblyopia, unspecified DX:Amblyo myrna, unspecified CVA (cerebral infarction) DX:CVA (cerebral infarction); COMMENT: february 25 2002 Hyperlipidemia DX:Hyperlipidemi a Atrial fibrillation ([facility] V24, [facility] V28) DX:Atrial fibrillation ([facility]) Back pain DX:Back pain Type 2 diabetes, uncontrolle d, with renal manifestation 03/10/2013 DX:Type 2 diabetes, uncontro lled, with renal manifestation CTS (carpal tunnel syndrome) DX: CTS (carpal tunnel syndrome); COMMENT: Bilateral Feet CKD (chronic kidney disease) stage 3, GFR 30-59 ml/min ([facility] V24, [facility] V28) 07/20/2015 DX:CKD (chronic kidney disea se) stage 3, GFR 30-59 ml/min ([facility]) Former smoker DX:Former smoker DM (diabetes mellitus), type 2 with renal complications ([facility] V24, [facility] V28) 04/20/2015 DX:DM (diabetes mellitus), t ype 2 with renal complications (HCC) History of recent stroke 11/28/2020 DX:Hist ory of recent stroke DM (diabetes mellitus), type 2 with neurological complications ([facility] V24, [facility] V28) 05/18/2021 DX:DM (diabetes mellitus), t ype 2 with neurological complications (HCC); COMMENT: Following with Apple Villar DPAndre at [facility]. Foot exam done on 05/02/2021 Peripheral neuropathy 05/22/2021 DX:Periphe ral neuropathy Type 2 diabetes mellitus wit h cataract ([facility] V24, [facility] V28) 05/22/2021 DX:Type 2 diabetes mellitus with cataract (HCC) Lumbar spinal stenosis 05/22/2021 DX:Lumbar spinal stenosis Hypertension 11/19/2024 Family History Medical History Relation Name Comments Heart attack Father diabetes Heart attack Mother stroke Relation Name Status Comments Father Mother Social History Tobacco Use Types Packs/Day Years Used Date Smoking Tobacco: Every Day Cigarettes Smokeless Tobacco: Never Tobacco Cessation:Ready to Q uit: Not Asked; Counseling Given: Not Answered Comments:3-4 cigarettes per day Alcohol Use Standard Drinks/Week Comments Not Currently 0 (1 standard drink = 0.6 oz pur e alcohol) Sex and Gender Information Value Date Recorded Sex Assigned at Not on file Legal Sex Male 10:43 AM EST Gender Identity Not on file Sexual Orientation Not on file Obstetrics History Last Filed Vital Signs Vital Sign Reading Time Taken Comments Blood Pressure 130/60 11/13/2024 10:20 AM EST Pulse 70 11/13/2024 10:20 AM EST Temperature - - Respiratory Rate - - Oxygen Saturation 97% 11/13/2024 10:20 AM EST Inhaled Oxygen Concentration - - Weight 80.3 kg (177 lb 1.6 oz) 11/13/2024 10:20 AM EST Height 175.3 cm (5' 9 ) 11/13/2024 10:20 AM EST Body Mass Index 26.15 11/13/2024 10:20 AM EST Plan of Treatment Health Maintenance Due Date Last Done Comments Diabetes: Annual Foot Exam 1963 Diabetes: Annual Retina Eye Exam 1965 Zoster Vaccines (1 of 2) 2003 RSV Immunization Adult Patients (1 - Risk 60-74 years 1-dose series) 2013 Pneumococcal Vaccine: 50+ Years (3 of 3 - PCV20 or PCV21) 04/20/2020 04/20/2015, 07/09/2012 DTaP,Tdap,and Td Vaccines (2 - Td or Tdap) 07/09/2022 07/09/2012 Abdominal Aortic Aneurysm (AAA) Screen 08/16/2022 Colorectal Cancer Screening: Colonoscopy 08/16/2022 Depression Screening 08/16/2022 Falls Risk Assessment 08/16/2022 Medicare Annual Wellness Visit 08/16/2022 Social Influencers of Health Screening 08/16/2022 Diabetes: Blood Sugar Contro l Test (HGBA1C) 08/25/2022 02/23/2022 Diabetes: Annual Urine Albumin-Creatinine Ratio (uACR) 02/23/2023 02/23/2022 Diabetes: Annual GFR (Glomerular Filtration Rate) 02/23/2023 02/23/2022 COVID-19 Vaccine (2023-2 5 season) 2024 08/22/2021, 12/14/2020, 11/23/2020 Hypertension/CHF/CAD Annual BMP Blood Test 09/29/2024 02/23/2022 Influenza Vaccine (Season Ended) 2025 Cholesterol Screening (Lipid Panel) 02/23/2027 02/23/2022 Hepatitis C Screening Completed 01/28/2013 HIB Vaccines Aged Out No longer eligi ble based on patient's age to complete this topic HPV Vaccines Aged Out No longer eligi ble based on patient's age to complete this topic Hepatitis A Vaccines Aged Out No long er eligible based on patient's age to complete this topic Hepatitis B Vaccines Aged Out No long er eligible based on patient's age to complete this topic IPV Vaccines Aged Out No longer eligi ble based on patient's age to complete this topic MMR Vaccines Aged Out No longer eligi ble based on patient's age to complete this topic Meningococcal ACWY Vaccine Aged Out N o longer eligible based on patient's age to complete this topic Meningococcal B Vaccine Aged Out No l onger eligible based on patient's age to complete this topic RSV Immunization Patients Under 20 months Aged Out No longer eligible b ased on patient's age to complete this topic Varicella Vaccines Aged Out No longer eligible based on patient's age to complete this topic Procedures Procedure Name Priority Date/Time Associated Diagnosis Comments ECG 12-LEAD Routine 11/13/2024 10:37 AM EST Paroxysmal atrial fibrillation ([facility]/HCC V24, [facility]/HCC V28) URINE ALBUMIN CREATININE RATIO Routine 02/23/2022 ANNUAL BMP BLOOD TEST Routine 02/23/2022 HEMOGLOBIN A1C Routine 02/23/2022 LIPID PANEL Routine 02/23/2022 HEPATITIS C SCREENING Routine 01/28/2013 from Last 3 Months or Most Recently Relevant to Health Maintenance Results * ECG 12 lead (11/13/2024 10:37 AM EST) [facility] Ventricular Rate ECG 70 BPM GEMUSE Atrial Rate 70 BPM GEMUSE P-R Interval 218 ms GEMUSE QRS Duration 88 ms GEMUSE Q-T Interval 386 ms GEMUSE QTc 416 ms GEMUSE P Wave [place] 72 degrees GEMUSE R [place] 59 degrees GEMUSE T [place] 24 degrees GEMUSE ECG Interpretation Sinus rhythm with 1st degree A-V block with Premature supraventricular complexes Otherwise normal ECG When compared with ECG of 27-JUN-2021 16:40, Premature supraventricular complexes are now Present Confirmed by FERNANDO ISSA ([id number]) on 11/13/2024 2:29:20 PM GEMUSE 11/13/2024 10:3 7 AM EST 11/13/2024 2:29 PM EST Result [facility] Gilberto Chavez KILN PUSHER ECG ORDERABLES Final Resul t GEMUSE * Urine Albumin Creatinine Ratio (02/23/2022) [facility] Urine Albumin Creatinine Ratio abstracted Result [facility] Historical Provider HEALTH MAINTENANCE Final Result * Annual BMP Blood Test (02/23/2022) [facility] Annual BMP Blood Test abstracted Result [facility] Historical Provider HEALTH MAINTENANCE Final Result * (ABNORMAL) Hemoglobin A1c (02/23/2022) [facility] Hemoglobin A1C 7.0(A) <=6.5 % Blood Venous blood specimen / Unknown Result [facility] Historical Provider LAB BLOOD ORDERABLES Nancy l Result * (ABNORMAL) Lipid panel (02/23/2022) [facility] LDL/HDL Ratio 2 0 - 4 Triglycerides 212(A) 0 - 150 mg/dL Cholesterol 107 0 - 200 mg/dL HDL 49 >=40 mg/dL LDL Cholesterol 16 0 - 100 mg/dL Blood Venous blood specimen / Unknown Historical Provider LAB BLOOD ORDERABLES Nancy l Result * Hepatitis C Screening (01/28/2013) Hepatitis C Screening abstracted Historical Provider HEALTH MAINTENANCE Final Result from Last 3 Months or Most Recently Relevant to Health Maintenance Insurance MEDICARE [facility] Care Teams Arcade Games Mechanic Relationship Specialty Start Date End Date Steve Strange [facility] [place] [address] PCP - General 02/21/23
--- OUTSIDE RECORDS SUMMARY | 2025-01-21 15:42 | XMS_ITS ---
Author Organization [facility] Address [address] [address] Care Team Providers Care Installation Superintendent Name Role Phone Steve Strange Primary Care Provider MILENA Pittman Unavailable [phone] REASON FOR VISIT cultures Encounters Encounter Location Date Provider Diagnosis [facility] [address] [address] 01/04/2025 MILENA GARCIA Plan Of Treatment Next Appt Details Provider Name:MILENA GARCIA, 02/11/2025 01:00:00 PM, [address] [facility] [address], [place], [address], Progress Notes * Alexander SANDHU RDOB:[birth year] (69 yo M)Acc No.[id number]:01/04/2025 Patient:?Alexander SANDHU :1955???Age:69 Y???Sex:Male [address] [place], [address] * true * Date:? Generated for Printi ng/Fatraceeg/eTransmitting on:?01/21/2025 03:42 PM EDT
--- OUTSIDE RECORDS SUMMARY | 2025-01-21 15:42 | XMS_ITS ---
Author Organization [facility] Address [address] [place] [address] Care Team Providers Care Can Sealer Name Role Phone Steve Strange Primary Care Provider APPLE Pittman Unavailable [phone] Allergies Allergen (clinical drug ingredient) Drug/Non Drug Allergy documented on EMR Reaction Allergy Type Onset Date Status IV Contrast (uncoded) Unknown Allergy Active azithromycin Azithromycin Unknown Drug Allergy A ctive Substance with penicillin structure and antibacterial mechanism of action (substance) Penicillins Unknown Drug Allergy Active Substance with 6-kchnvsv-1-methylgluta ryl-coenzyme A reductase inhibitor mechanism of action (substance) Statins Unknown Drug Allergy Active REASON FOR VISIT 2-3wk Medications Medication SIG (Take, Route, Frequency, Duration) Notes Start Date End Date Status dexAMETHasone Sodium Phosphate 20 MG/5ML as directed Iontophoresis Once a day for 14 days 01/31/2024 Not-Taking tiZANidine HCl 2 MG 1 tablet at bedtime as needed Orally Once a day Not-Taking Doxycycline Not-Taki ng Doxycycline Monohydrate 100 MG 1 capsule Orally every 12 hrs for 7 days 12/29/2024 Not-Taking Doxycycline Monohydrate 100 MG 1 capsule Orally every 12 hrs for 7 days 12/24/2024 Not-Taking Cholecalciferol 25 MCG (1000 UT) 1 capsule Orally Once a day Active Folic Acid 1 MG 1 tablet Orally Once a day Active metFORMIN HCl 1000 MG 1 tablet with a me al Orally twice a day Active Ozempic weekly Active Multivitamin - 1 tablet Orally Once a day Active Repatha SureClick 140 MG/ML as directed Subcutaneous every 2 weeks Active Eliquis 5 MG as directed Orally twice a day Active Lisinopril 20 MG 1 tablet Orally Once a day Active Tylenol 8 Hour 650 MG 2 tablets as neede d Orally every 8 hrs Active Tamsulosin HCl 0.4 MG 1 capsule Orally Once a day Active Nasacort Allergy 24HR 55 MCG/ACT 1 spray in each nostril Nasally Once a day Active amLODIPine Besylate 10 MG 1 tablet Orally Once a day Active Finasteride Active Doxycycline Monohydrate 100 MG 1 capsule Orally every 12 hrs for 7 days 08/16/2021 Not-Taking Lidocaine 5 % 1 patch remove after 12 hours Externally to left foot Once a day for 30 days 09/06/2020 Not-Taking Azelastine HCl 137 MCG/SPRAY 1 puff in each nostril Nasally Twice a day Not-Taking Acetaminophen 500 MG 1 capsule as needed Orally every 6 hrs Not-Taking Doxycycline Monohydrate 100 MG 1 capsule Orally every 12 hrs for 7 days 07/12/2023 Not-Taking Propafenone HCl 225 MG 1 tablet Orally every 8 hrs Not-Taking Diclofenac Sodium 1 % as directed Transdermal Not-Taking Vital Signs Height 71 in 01/14/2025 Weight 172.4 lbs 01/14/2025 BMI 24.04 kg/m2 01/14/2025 Encounters Encounter Location Date Provider Diagnosis [facility] [address] [place] [address] 01/14/2025 APPLE GARCIA Closed nondisplaced fracture of distal phalanx of lesser toe of left foot, initial encounter S92.535A ; Contusion of lesser toe of left foot with damage to nail, subsequent encounter S90.222D and Subungual hematoma of toe of left foot, initial encounter S90.222A Assessments Encounter Date Diagnosis (ICD Code) Assessment Notes Treatment Notes Treatment Clinical Notes Section Notes 01/14/2025 Closed nondisplaced fracture of distal phalanx of lesser toe of left foot, initial encounter (ICD-10 - S92.535A) Patient examined and evaluated. He sustained a direct contusion injury to the left 2nd toe about 3 weeks ago. This caused cellulitis. He was treated on two rounds of doxycycline. This cleared most of the erythema. He still has some localized erythema to the distal tuft of the toe with edema. I trimmed the callus tissue with a sterile 15 blade to the distal tuft of the toe. No underlying ulceration. I trimmed back the nail with a sterile nail nipper and this released the underlying subungual hematoma. No purulence appreciated. Three weightbearing radiographs of the left foot were taken in the office today. He does appear to have a fracture to the distal phalanx. I discussed that this will create tenderness and swelling for a few months. It can take 8-12 weeks to heal. I bandaged the toe again today and advised his continue to do this until the nail area scabs over. He should continue to avoid the hot tub for now. I will see him back in 4 weeks or sooner if needed. 01/14/2025 Contusion of lesser toe of left foot with damage to nail, subsequent encounter (ICD-10 - S90.222D) 01/14/2025 Subungual hematoma of toe of left foot, initial encounter (ICD-10 - S90.222A) Plan Of Treatment Treatment Notes Assessment Notes Closed nondisplaced fracture of distal phalanx of lesser toe of left foot, initial encounter Patient examined and evaluated. He sustained a direct contusion injury to the left 2nd toe about 3 weeks ago. This caused cellulitis. He was treated on two rounds of doxycycline. This cleared most of the erythema. He still has some localized erythema to the distal tuft of the toe with edema. I trimmed the callus tissue with a sterile 15 blade to the distal tuft of the toe. No underlying ulceration. I trimmed back the nail with a sterile nail nipper and this released the underlying subungual hematoma. No purulence appreciated. Three weightbearing radiographs of the left foot were taken in the office today. He does appear to have a fracture to the distal phalanx. I discussed that this will create tenderness and swelling for a few months. It can take 8-12 weeks to heal. I bandaged the toe again today and advised his continue to do this until the nail area scabs over. He should continue to avoid the hot tub for now. I will see him back in 4 weeks or sooner if needed. Pending Test Test Name Order Date X ray : Foot, left 3v 01/14/2025 Next Appt Details Follow Up: 4 Weeks, Reason: Provider Name:APPLE GARCIA, 02/11/2025 01:00:00 PM, [address] [address], [place], [address], Progress Notes * Alexander SANDHU RDOB:[birth year] (69 yo M)Acc No.[id number]:01/14/2025 Progress Note Patient:?Alexander SANDHU Provider:?Apple Lindsey DPAndre :1955???Age:69 Y???Sex:Male Stu e:01/14/2025 Address:[address] [place] [address], [id number] Pcp:Steve Strange Subjective: * Chief Complaints: * ???2-3wk * HPI: ???Foot & Ankle:?Mr. Sandhu presents for a 2 week follow up for his left 2nd toe injury. He finished the 2nd course of doxycycline. He states the redness is better. There is still sensitivity to the tip of the toe and swelling. He is here with his . He jammed his left 2nd toe while on a trip to [place]. He states it happened while he was getting out of a hot tub. This occurred about 3 weeks ago.??His continues to apply a padded bandage to the area. * ROS:?General/Constitutional:?Denies?Chills.?Denies?Fever.?Denies?Headache.?Cardiovascular:?Denies?Chest pain.?Denies?Claudication.?Denies?Dizziness.?Fluid accumulation in the legs?admits to swelling both legs.?Musculoskeletal:?Patient complaining of?left heel pain, chronic. Left 2nd toe pain.?Admits?Back problems.?Admits?Leg cramps.?Admits?Muscle aches.?Denies?Swollen joints.?Peripheral Vascular:?Admits?Decreased sensation in extremities.?Denies?Pain/cramping in legs after exertion.?Denies?Ulceration of feet.?Skin:?Denies?Dry skin.?Denies?Itching.?Admits?Nail changes.?Denies?Rash.?Denies?Skin lesion(s).? * Medical History:? * Surgical History:?right ankl e surgery 2016lumbar spine decompression 2020Historical left knee surgery carpal tunnel release * Hospitalization/Major Diagno stic Procedure:?[facility] for right subcortical infarct 2020 * Family [...] Subcutaneous , Notes to Pharmacist: every 2 weeksOzempic , Notes to Pharmacist: weeklymetFORMIN HCl 1000 MG Tablet 1 tablet with a meal Orally twice a day Folic Acid 1 MG Tablet 1 tablet Orally Once a day Cholecalciferol 25 MCG (1000 UT) Capsule 1 capsule Orally Once a day Multivitamin - Tablet 1 tablet Orally Once a day Taking Nasacort Allergy 24HR 55 MCG/ACT Aerosol [...] Tablet 1 tablet Orally Once a day Not-TakingDoxycycline Monohydrate 100 MG Capsule 1 capsule Orally every 12 hrs Doxycycline Monohydrate 100 MG Capsule 1 capsule Orally every 12 hrs Doxycycline tiZANidine HCl 2 MG Tablet 1 tablet [...] reviewed and reconciled with the patientNot-Taking Doxycycline Monohydrate 100 MG Capsule 1 capsule Orally every 12 hrs Not-Taking Doxycycline Monohydrate 100 MG Capsule 1 capsule Orally every 12 hrs Not-Taking Doxycycline Not-Taking tiZANidine HCl 2 MG Tablet [...] Externally to left foot Once a day Not-Taking Doxycycline Monohydrate 100 MG Capsule 1 capsule Orally every 12 hrs Medication List reviewed and reconciled with the patient * Allergies:?AzithromycinIV Co ntrastPenicillinsStatinsno[Allergies Verified] Objective: * Vitals:?Wt:172.4lbs, Ht: 71 in, BMI:24.04Index, Ht-cm: 180.34, Wt-k.2 kg. * Examination: ???General Examination: ???This is an elderly male. Alert and oriented today and in no acute distress. Patient comes in ambulating in? sneakers with gel heel cups using a cane today. Breathing is regular and unlabored while [...] growth is diminished. No peripheral edema present. Plantar fat pad atrophy bilaterally, left heel is most severe. There is a left hallux extensus deformity due to neurological changes. The toenail has increased thickness and there is a small spicule in the proximal medial border.? The left 2nd toe is elongated and has slight flexion at the DIPJ. There is localized erythema to the distal aspect of the 2nd toe with bulbous edema. The edema is more laterally. There is tenderness with pressure around the tip of the 2nd toe. The toenail is thickened and there is underlying subungual hematoma. Minimal lysis. No purulence. There is callus tissue at the distal tuft without underlying ulceration. No streaking erythema. There is a rigid pes planovalgus deformity present to the right with benign cicatrix from previous surgery. There is tenderness around the right subtalar and ankle joints with restricted range of motion, this is chronic and stable for him. Significant muscle atrophy present to both lower extremities. Assessment: * Assessment: 1.?Closed nondisplaced fract ure of distal phalanx of lesser toe of left foot, initial encounter - S92.535A (Primary)???2.?Contusion of lesser toe of left foot with damage to nail, subsequent encounter - S90.222D???3.?Subungual hematoma of toe of left foot, initial encounter - S90.222A??? Plan: * Treatment: 2.?Contusion of lesser toe o f left foot with damage to nail, subsequent encounter?Imaging: X ray : Foot, left 3v 3.?Subungual hematoma of toe of left foot, initial encounter?Imaging: X ray : Foot, left 3v * Procedures:?LEFT FOOT RADIOGRAPHS 01/14/2025 3 weight bearing views (AP, LAT, ANKLE MORTISE) Taken in the office and read by the physician. Mild patchy osteopenia present. There is mild degenerative changes in the tarsometatarsal joints. There is fracture present to the left 2nd distal phalanx with mild comminution. The joint is still well aligned. There is a flexion deformity at the 2nd DIPJ. There is soft tissue edema around the distal aspect of the 2nd toe without any soft tissue emphysema.??Bipartite fibula sesamoid. There is atherosclerosis present around the posterior tibial artery and the dorsalis pedis artery.? Small plantar calcaneal enthesophyte. ? * Procedure Codes:?64262 X-RAY EXAM OF FOOT 3 Views, Modifiers: LT * Follow Up:?4 Weeks * Billing Information: * Visit Code:? 82054 Office Visit, Est Pt., Level 3. * Procedure Codes:? 41870 X-RAY EXAM OF FOOT 3 Views. Modifiers: LT * Sign off status: Completed true * Provider:?Apple Lindsey DPM Date:?01/14 Generated for Avi balderas/Ronda/Chintanitting on:?01/21/2025 03:42 PM EDT History and Physical Notes * Examination Category Sub-Category Detail Notes Category Not es General Examination This is an elderly male. Alert and oriented today and in no acute distress. Patient comes in ambulating in sneakers with gel heel cups using a cane today. Breathing is regular and unlabored while [...] growth is diminished. No peripheral edema present. Plantar fat pad atrophy bilaterally, left heel is most severe. There is a left hallux extensus deformity due to neurological changes. The toenail has increased thickness and there is a small spicule in the proximal medial border. The left 2nd toe is elongated and has slight flexion at the DIPJ. There is localized erythema to the distal aspect of the 2nd toe with bulbous edema. The edema is more laterally. There is tenderness with pressure around the tip of the 2nd toe. The toenail is thickened and there is underlying subungual hematoma. Minimal lysis. No purulence. There is callus tissue at the distal tuft without underlying ulceration. No streaking erythema. There is a rigid pes planovalgus deformity present to the right with benign cicatrix from previous surgery. There is tenderness around the right subtalar and ankle joints with restricted range of motion, this is chronic and stable for him. Significant muscle atrophy present to both lower extremities.
--- OUTSIDE RECORDS SUMMARY | 2025-01-21 15:43 | XMS_ITS | Encounter Summary ---
Author Organization [facility] Address [address] [place] [address] Care Team Providers Care Food Science Technician Name Role Phone Steve Strange MD Primary Care Provider Encounter Details Date Type Department Care Team (Late st Contact Info) Description 01/13/2025 Scanned Document [facility] [address] [address] Amandeep Almonte MD [address] [place] [address] [phone] Social History Tobacco Use Types Packs/Day Years Used Date Smoking Tobacco: Every Day Cigarettes Passive Smoke Exposure: Current Smokeless Tobacco: Never Alcohol Use Standard Drinks/Week Comments Yes 0 (1 standard drink = 0.6 oz pur e alcohol) Sex and Gender Information Value Date Recorded Sex Assigned at Not on file Legal Sex Male 7:26 PM EST Gender Identity Not on file Sexual Orientation Not on file documented as of this encounter Plan of Treatment Upcoming Encounters Date Type Department Care Team (Late st Contact Info) Description 01/28/2025 10:15 AM EDT Office Visit [facility] [address] [address] Amandeep Almonte MD [address] [place] [address] [phone] documented as of this encounter Visit Diagnoses Not on filedocumented in this encounter Care Teams Food Science Technician Relationship Specialty Start Date End Date Steve Strange MD [address] [place] [address] PCP - General 07/22/24 documented as of this encounter
--- OUTSIDE RECORDS SUMMARY | 2025-01-21 15:43 | XMS_ITS | Patient Health Record ---
Author Organization [facility] Address [address] [address] Care Team Providers Care Licensed Chemical Spray Technician Name Role Phone Steve Strange Primary Care Provider MILENA Pittman Unavailable [phone] Allergies Allergen (clinical drug ingredient) Drug/Non Drug Allergy documented on EMR Reaction Allergy Type Onset Date Status IV Contrast (uncoded) Unknown Allergy Active azithromycin Azithromycin Unknown Drug Allergy A ctive Substance with penicillin structure and antibacterial mechanism of action (substance) Penicillins Unknown Drug Allergy Active Substance with 0-hsvfiee-3-methylgluta ryl-coenzyme A reductase inhibitor mechanism of action (substance) Statins Unknown Drug Allergy Active Results Component Value Reference Range Notes Anaerobic/Aerobic/Gram Stain -[id number] Reviewed date:01/04/2025 02:21:41 PM Interpretation: Performing Lab:[facility], [address], [place], Phone - [phone], Director - [facility] Notes/Report: Clinical Information:SRC: SOURCE NOT INDICATED Clinical Information:SRC: SOURCE NOT INDICATED Clinical Information:SRC: SOURCE NOT INDICATED Clinical Information:SRC: SOURCE NOT INDICATED Anaerobic Culture Final report Aerobic Culture Final report Gram Stain Result Final report Result 1 No anaerobic gr owth in 72 hours. Result 1 Skin juhi isolated Result 1 No white blood cells seen. Result 2 No organisms seen Reason For Referral Reason Patient finding the ultrasound and graston work helpful for the left foot and would like to continue with therapy. Diagnosis 1 Pain in left foot (M 79.672) Diagnosis 2 Other chronic pain ( G89.29) Diagnosis 3 Type 2 diabetes mariaa itus with diabetic polyneuropathy (E11.42) Diagnosis 4 Peripheral arterial disease (I73.9) Referral Organization [facility] Referring Provider First Name MILENA Referring Provider Last Name RADHA Referring Provider Speciality Podiatry Referred Provider Specialty Physical The rapist Referral Priority Routine Reason chronic plantar left heel pain, multifactorial. Patient has found benefit in ultrasound and graston work. He has had numerous conservative treatments of injections, shockwave, orthotics, bracing, padding, shoe changes. MRIs and xrays. He has PAD, neuropathy and fat pad atrophy. Not a surgical candidate. Diagnosis 1 Pain in left foot (M 79.672) Diagnosis 2 Other chronic pain ( G89.29) Referral Organization [facility] Referring Provider First Name MILENA Referring Provider Last Name RADHA Referring Provider Speciality Podiatry Referred Provider Specialty Physical The rapist Referral Priority Routine Medications Medication SIG (Take, Route, Frequency, Duration) Notes Start Date End Date Status Azelastine HCl 137 MCG/SPRAY 1 puff in each nostril Nasally Twice a day Not-Taking dexAMETHasone Sodium Phosphate 20 MG/5ML as directed Iontophoresis Once a day for 14 days 01/31/2024 Not-Taking tiZANidine HCl 2 MG 1 tablet at bedtime as needed Orally Once a day Not-Taking Doxycycline Not-Estelle ng Nasacort Allergy 24HR 55 MCG/ACT 1 spray in each nostril Nasally Once a day Active Acetaminophen 500 MG 1 capsule as needed Orally every 6 hrs Not-Taking Doxycycline Monohydrate 100 MG 1 capsule Orally every 12 hrs for 7 days 07/12/2023 Not-Taking Propafenone HCl 225 MG 1 tablet Orally every 8 hrs Not-Taking amLODIPine Besylate 10 MG 1 tablet Orally Once a day Active Tamsulosin HCl 0.4 MG 1 capsule Orally Once a day Active Finasteride Active Doxycycline Monohydrate 100 MG 1 capsule Orally every 12 hrs for 7 days 08/16/2021 Not-Taking Lidocaine 5 % 1 patch remove after 12 hours Externally to left foot Once a day for 30 days 09/06/2020 Not-Taking Diclofenac Sodium 1 % as directed Transdermal Not-Taking Repatha SureClick 140 MG/ML as directed Subcutaneous every 2 weeks Active Eliquis 5 MG as directed Orally twice a day Active Lisinopril 20 MG 1 tablet Orally Once a day Active Tylenol 8 Hour 650 MG 2 tablets as neede d Orally every 8 hrs Active Cholecalciferol 25 MCG (1000 UT) 1 capsule Orally Once a day Active Folic Acid 1 MG 1 tablet Orally Once a day Active metFORMIN HCl 1000 MG 1 tablet with a me al Orally twice a day Active Ozempic weekly Active Doxycycline Monohydrate 100 MG 1 capsule Orally every 12 hrs for 7 days 12/29/2024 Not-Taking Doxycycline Monohydrate 100 MG 1 capsule Orally every 12 hrs for 7 days 12/24/2024 Not-Taking Multivitamin - 1 tablet Orally Once a day Active Problems Problem Type SNOMED Code ICD Code Onset Dates Problem Status W/U Status Risk Notes Problem 328709580 Type 2 diabetes mellitus with diabetic polyneuropathy (E11.42) Active confirmed Problem 529211803 Type 2 diabetes mellitus with diabetic peripheral angiopathy without gangrene (E11.51) Active confirmed Problem 30534549 Other chronic pain (G89.29) Active confirmed Problem 5853069 Pain in left jt t (M79.672) Active confirmed Problem 50285822 Type 2 diabetes mellitus with diabetic polyneuropathy, without long-term current use of insulin (E11.42) Active confirmed Problem 372579133 PAD (peripheral artery disease) (I73.9) Active confirmed Problem 94446982071819466 Plantar fascii tis of left foot (M72.2) Active confirmed Problem Peripheral arterial occlusive disease (386131249) Peripheral arterial occlusive disease (I77.9) Active confirmed Problem 720866337 Ulcer of right foot, limited to breakdown of skin (L97.511) Active confirmed Problem 245519371 Peripheral arterial disease (I73.9) Active confirmed Problem 633609167 Tobacco use disorder (F17.200) Active confirmed Problem Occlusive diseas e of artery of lower extremity (I70.209) Active confirmed Problem 763081624 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) Active confirmed Problem Type 2 diabetes mellitus with peripheral angiopathy (876723671) Type 2 diabetes mellitus with peripheral vascular disease (E11.51) Active confirmed Problem 385340186 Plantar fat pad atrophy of right foot (M21.6X1) Active confirmed Vital Signs Heart Rate 81 /min 07/16/2024 Temperature 97.3 degrees Fahrenheit 07/16/2024 Respiratory Rate 16 /min 07/16/2024 Height 71 in 01/14/2025 Weight 172.4 lbs 01/14/2025 BMI 24.04 kg/m2 01/14/2025 Encounters Encounter Location Date Provider Diagnosis [facility] [address] 01/30/2024 MILENA RADHA [facility] [address] 04/09/2024 MILENA RADHA [facility] [address] 05/14/2024 MILENA RADHA [facility] [address] 06/11/2024 MILENA RADHA [facility] [address] 07/16/2024 MILENA RADHA [facility] [address] 10/01/2024 MILENA RADHA [facility] [address] 11/26/2024 MILENA RADHA [facility] [address] 03/09/2024 MILENA RADHA Pain in left foot M79.672 ; Other chronic pain G89.29 ; Peripheral arterial occlusive disease I77.9 ; Type 2 diabetes mellitus with diabetic polyneuropathy E11.42 and Muscle weakness of lower extremity M62.81 [facility] [address] 08/20/2024 MILENA RDAHA Pain in left foot M79.672 ; Other chronic pain G89.29 ; Peripheral arterial occlusive disease I77.9 ; Type 2 diabetes mellitus with diabetic polyneuropathy E11.42 ; Acquired deformity of left toe M20.62 and Chronic a-fib I48.20 [facility] [address] 10/29/2024 MILENA RADHA Pain in left foot M79.672 ; Other chronic pain G89.29 ; Peripheral arterial occlusive disease I77.9 ; Type 2 diabetes mellitus with diabetic polyneuropathy E11.42 and Acquired deformity of left toe M20.62 [facility] [address] 12/31/2024 MILENA RADHA Contusion of lesser toe of left foot with damage to nail, initial encounter S90.222A and Cellulitis of toe of left foot L03.032 [facility] [address] 01/14/2025 MILENA RADHA Closed nondisplaced fracture of distal phalanx of lesser toe of left foot, initial encounter S92.535A ; Contusion of lesser toe of left foot with damage to nail, subsequent encounter S90.222D and Subungual hematoma of toe of left foot, initial encounter S90.222A [facility] [address] 01/31/2024 MILENA RADHA [facility] [address] 01/31/2024 MILENA RADHA [facility] [address] 03/09/2024 MILENA RADHA [facility] [address] 03/09/2024 MILENA RADHA [facility] [address] 03/16/2024 MILENA RADHA [facility] [address] 03/16/2024 MILENA RADHA [facility] [address] 03/17/2024 MILENA RADHA [facility] [address] 04/03/2024 MILENA RADHA [facility] [address] 06/09/2024 MILENA RADHA [facility] [address] [address] 12/24/2024 MILENA [facility] [address] 12/29/2024 MILENA GARCIA [facility] [address] 12/29/2024 MILENA [facility] [address] 01/04/2025 MILENA GARICA Assessments Encounter Date Diagnosis (ICD Code) Assessment Notes Treatment Notes Treatment Clinical Notes Section Notes 03/09/2024 Other chronic pain (ICD-10 - G89.29) 03/09/2024 Pain in left foot (ICD-10 - M79.672) 08/20/2024 Other chronic pain (ICD-10 - G89.29) 08/20/2024 Pain in left foot (ICD-10 - M79.672) 10/29/2024 Other chronic pain (ICD-10 - G89.29) 10/29/2024 Pain in left foot (ICD-10 - M79.672) 12/31/2024 Cellulitis of toe of left foot (ICD-10 - L03.032) 12/31/2024 Contusion of lesser toe of left [...] in 2-3 weeks or sooner if needed. 01/14/2025 Closed nondisplaced fracture of distal phalanx [...] left foot, initial encounter (ICD-10 - S90.222A) 10/29/2024 Peripheral arterial occlusive disease (ICD-10 - I77.9) This is an outpatient visit for evaluation and management of an established patient, which required appropriate review of pertinent medical history, review of any previous imaging, review of all previous records, and examination and decision-making. Time was 30 minutes spent in review of all these facets including face to face discussion with the patient regarding my findings and in discussion of a current and future treatment plan. Alexander complains of pain to the plantar left heel. This is a chronic issue for him. He has significant plantar fat pad atrophy along with vascular and neurological issues. He has been through numerous rounds of conservative treatment and has had two other opinions.. He should continue with the good shoes and gel heel cups. I have no other options at this time for him. He is on anticoagulation, but does actively smoke and is also in active afib. Cardiology is monitoring and does not think he needs to be cardioverted at this time. He is at risk of throwing emboli to the toes and has in the past. I do not see any obvious signs of this. He does have significant PAD left worse than right. Last studies done in 2021. He has not wanted to have them done again. I do think they should be done soon and will continue to advise that he does have them. He has a distal clavus to the left 2nd toe due to the deformity and pressure. Has worsened a little without ulceration. Likely due to him wearing the slippers and doing more ambulation. Will continue with the crest pad daily. At this time he needs to focus on smoking cessation and continuing control of his HgbA1c. He needs to avoid all barefoot walking. His checks his feet daily for him. I will see him back in the office in 4 weeks or sooner if needed. 08/20/2024 Peripheral arterial occlusive disease (ICD-10 - I77.9) This is an outpatient visit for evaluation and management of an established patient, which required appropriate review of pertinent medical history, review of any previous imaging, review of all previous records, and examination and decision-making. Time was 30 minutes spent in review of all these facets including face to face discussion with the patient regarding my findings and in discussion of a current and future treatment plan. Alexander complains of worsening pain to the plantar left heel. This is a chronic issue for him. He has significant plantar fat pad atrophy along with vascular and neurological issues. He has been through numerous rounds of conservative treatment and has had two other opinions.. I advised that he needs to get a new pair of slippers at home that have a back and support to help avoid irritation. I gave him some extra padding for his heel cup today and this seemed to help. There is no surgical management that will make this go away for him. He is on anticoagulation, but does actively smoke and is also in active afib. Cardiology is monitoring and does not think he needs to be cardioverted at this time. He is at risk of throwing emboli to the toes and has in the past. I do not see any obvious sings of this. He does have significant PAD left worse than right. Last studies done in 2021. He has not wanted to have them done again. I do think they should be done soon and will continue to advise that he does have them. He has a distal clavus to the left 2nd toe due to the deformity and pressure. Has worsened a little without ulceration. Likely due to him wearing the slippers and doing more ambulation. I cleaned this up for him today and applied a gel toe protector along with the crest pad. He will continue to use these daily. At this time he needs to focus on smoking cessation and continuing control of his HgbA1c. I did congratulate him on a more controlled HgbAic since his last visit. He needs to avoid all barefoot walking. His checks his feet daily for him. I will see him back in the office in 4 weeks or sooner if needed. 08/20/2024 Type 2 diabetes mellitus with diabetic polyneuropathy (ICD-10 - E11.42) 03/09/2024 Peripheral arterial occlusive disease (ICD-10 - I77.9) This is an outpatient visit for evaluation and management of an established patient, which required appropriate review of pertinent medical history, review of any previous imaging, review of all previous records, and examination and decision-making. Time was 30 minutes spent in review of all these facets including face to face discussion with the patient regarding my findings and in discussion of a current and future treatment plan. Patient complains of intermittent radiating pain from the plantar left heel to the left lower leg. He has chronic left plantar heel pain likely multifactorial (atrophy, neuro, vascular). He is on anticoagulation, but does actively smoke. Patient wanted to wait on repeat vascular studies for now. I do think this is causing a majority of his symptoms and did encourage this testing be done this year. Last one done at [facility] in 2021. We have tried numerous conservative treatments without any improvement. He is careful to always wear supportive shoes and heel cups. He also has been wearing an OTC ASO on the left ankle. I discussed with him that he does not have to wear this brace anymore, but if it makes him feel more stable there is no issues with continuing to wear it. He has found physical therapy to be helpful and would like to continue with it. He wanted me to placed another order for PT today. His rigid pes planovalgus on the right does bother him as well. He is not a surgical candidate due to his complex medical issues. He has a distal clavus to the left 2nd toe due to the deformity and pressure. Well controlled. He will continue to wear the crest pad. At this time he needs to focus on smoking cessation and continuing control of his HgbA1c. He needs to avoid all barefoot walking. His checks his feet daily for him. I will see him back in the office in 4 weeks or sooner if needed. 10/29/2024 Type 2 diabetes mellitus with diabetic polyneuropathy (ICD-10 - E11.42) 10/29/2024 Acquired deformity of left toe (ICD-10 - M20.62) 03/09/2024 Type 2 diabetes mellitus with diabetic polyneuropathy (ICD-10 - E11.42) 08/20/2024 Acquired deformity of left toe (ICD-10 - M20.62) 08/20/2024 Chronic a-fib (ICD-10 - I48.20) 03/09/2024 Muscle weakness of lower extremity (ICD-10 - M62.81) Plan Of Treatment Pending Test Test Name Order Date X ray : Ankle, left, 3 views 05/23/2023 X ray : Ankle, left, 3 views 06/13/2023 X ray : Ankle, left, 3 views 07/04/2023 X ray : Ankle, left, 3 views 07/25/2023 X ray : Ankle, left, 3 views 08/28/2023 X ray : Ankle, left, 3 views 05/10/2023 X ray : Foot, left 3v 05/09/2022 X ray : Foot, left 3v 01/14/2025 Removal of foreign body foot, simple sub q 06/06/2020 INJ TENDON SHEATH/LIGAMENT/FASCIA 2019 INJ TENDON SHEATH/LIGAMENT/FASCIA 2021 DRAIN/INJECT, INTERMEDIATE JOINT/BURSA 0 04/07/2020 AFO TRACEE CROW PREFAB W/FIT&ADJ 020 Trim dystrophic toenails any number 07/3 Trim dystrophic toenails any number 022 12/2020 Trim dystrophic toenails any number 07/11/2020 Trim dystrophic toenails any number 082 12/2020 Trim skin lesion 09/06/2020 Trim skin lesion 05/19/2020 Extracorporeal Shock Wave Therapy 2019 Extracorporeal Shock Wave Therapy 2019 WALKING BOOT PNEUMATIC AND/OR VAC 2022 Next Appt Details Provider Name:MILENA GARCIA, 02/11/2025 01:00:00 PM, [address], [address], Insurance Providers Payer Name Payer Address Payer Phone Subscriber Number Group Number Insured Name Patient Relationship to Insured Coverage Start Date Coverage End Date [employer] of [place] [address] [place] [phone] [id number] Alexander Sandhu Self - patient is the insured [employer] [facility] [address] [place] [phone] [id number] Alexander Sandhu Self - patient is the insured Medications Administered Medication Instructions Date of Administration Dosage Notes Dexamethasone 04/07/2020 2 mg Dexamethasone 11/30/2021 2 mg Kenalog 04/07/2020 20 mg Kenalog 11/30/2021 20 mg Medical (General) History Medical History History ICD Code Peripheral vascular disease I73.9 Nicotine dependence, unspecified, uncomp licated F17.200 Benign prostatic hyperplasia with lower urinary tract symptoms N40.1 Chronic kidney disease, stage 3 (moderat e) N18.3 Paroxysmal atrial fibrillation I48.0 Type 2 diabetes mellitus with other diab etic kidney complication E11.29 Type 2 diabetes mellitus with hyperglyce igor E11.65 Unspecified sequelae of unspecified cere brovascular disease I69.90 Nontoxic single thyroid nodule E04.1 Spondylosis without myelopathy or radicu lopathy, lumbar region M47.816 Sprain of anterior cruciate ligament of unspecified knee, initial encounter S83.519A Other shoulder lesions, unspecified shou lder M75.80 Spinal stenosis, cervical region M48.02 Unspecified cataract H26.9 Unspecified amblyopia, unspecified eye H 53.009 Personal history of transien t ischemic attack (TIA), and cerebral infarction without residual deficits Z86.73 Hyperlipidemia, unspecified E78.5 CVA UTI COVID vaccinated X 3 (Moderna) Surgical History Surgery Date(Month/Year) right ankle surgery 2016 lumbar spine decompression 2020 Historical left knee surgery carpal tunnel release Hospitalization History Reason Date(Month/Year) [facility] for right subcortical infarct November
--- OUTSIDE RECORDS SUMMARY | 2025-01-21 15:43 | XMS_ITS | Clinical Summary ---
Author Organization [facility] Address [address] [place] [address] Care Team Providers Care Stewardess Supervisor Name Role Phone Steve Strange MD Primary Care Provider [phone] Allergies Active Allergy Reactions Criticality Noted Date Comments Azithromycin 01/31/2012 INTERFERED WITH COUMADIN Glipizide 08/25/2019 Iodinated Contrast Media Other (See Comments) 03/13/2017 Paralysis of cranial nerve [address]ED SEVERE HEADACHE FROM CT CONTRAST IN THE Penicillins Other (See Comments) 01/31/2012 Other reaction(s): Unknown unsure PT STATES ALL CILLINS -WAS TOLD as a CHILD ?? Statins 11/28/2020 Myositis, had muscle breakdown Medications Medication Sig Dispensed Refills Start Date End Date Status COUMADIN 5 MG tablet Take 5 mg by mouth daily. 5mg Saturday and Saturday and 2.5 mg rest of the week 11 01/24/2019 Active tamsulosin (FLOMAX) 0.4 MG CAPS 0.4 mg daily. 0 01/23/2019 Active acetaminophen (TYLENOL EXTRA STRENGTH) 500 MG tablet Take 500 mg by mouth every 4 (four) hours as needed. 0 Active Ascorbic Acid (VITAMIN C) 1000 MG tablet Take 1,000 mg by mouth daily. 0 Active Cholecalciferol (VITAMIN D) 1000 units tablet Take 1,000 Units by mouth daily. 0 03/16/2013 Active folic acid (FOLVITE) tablet 1 mg Take 1,000 mcg by mouth daily. 1 01/17/2019 Active propafenone (RYTHMOL) 225 MG tablet TAKE 1 TABLET BY MOUTH EVERY 8 HOURS 0 01/16/2019 Active Multiple Vitamin (MULTI-DAY VITAMINS PO) Take by mouth. 0 Active ONETOUCH DELICA LANCETS FINE MISC Apply 1 Stick topically. 0 01/10/2018 Active Diclofenac Sodium 1 % GEL topical as needed. 0 05/13/2019 Active JARDIANCE 25 MG TABS Take 25 mg by mouth daily. 0 09/21/2019 Active metFORMIN (GLUCOPHAGE) tablet 1000 mg Take 1,000 mg by mouth 2 (two) times a day with meals. 0 09/22/2019 Active glucose blood (ONE TOUCH ULTRA TEST) test strip USE 1 STRIP DIRECTED 3 TIMES DAILY 0 08/31/2019 Active Semaglutide (OZEMPIC, 0.25 OR 0.5 MG/DOSE, SC) Inject 0.25 mg under the skin once a week. 0 12/02/2020 Active Evolocumab (Repatha) 140 MG/ML SOSYIndications:Hyper lipidemia Inject 140 mg under the skin. 0 12/08/2020 Active loratadine (Claritin) 10 MG tabletIndications:Sea ai Allergic Rhinitis Take 10 mg by mouth daily. 0 Active Eliquis 5 MG TABS tablet Take 1 tablet (5 mg total) by mouth 2 (two) times a day. 0 11/10/2022 Active lisinopril (PRINIVIL,ZESTRIL) tablet 10 mg 0 01/19/2023 Active Active Problems Problem Noted Date Diagnosed Date Spondylosis 07/20/2019 Degenerative disc disease, cervical 07/20/2019 Balance disorder 07/20/2019 Smoker 07/06/2019 Lumbosacral pain 07/01/2019 Right leg pain 07/01/2019 Degenerative disc disease, lumbar 07/01/2019 Foraminal stenosis of lumbar region 07/01/2019 Family History Medical History Relation Name Comments Atrial fibrillation Father Diabetes Father Diabetes Mother Heart disease Mother Stroke Mother Relation Name Status Comments Father Mother Social History Tobacco Use Types Packs/Day Years Used Date Smoking Tobacco: Every Day Cigarettes 0.5 Smokeless Tobacco: Never Alcohol Use Standard Drinks/Week Comments Yes 0 (1 standard drink = 0.6 oz pur e alcohol) rare Sex and Gender Information Value Date Recorded Sex Assigned at Male 12/30/2019 9:47 AM EDT Gender Identity Not on file Sexual Orientation Not on file Job Start Date Occupation Industry Not on file Not on file Not on file Last Filed Vital Signs Vital Sign Reading Time Taken Comments Blood Pressure 167/77 12/23/2020 11:02 AM EDT Pulse 67 12/23/2020 11:02 AM EDT Temperature 36.7 ??C (98 ??F) 12/23/2020 11:02 AM EDT Respiratory Rate 18 12/23/2020 11:02 AM EDT Oxygen Saturation 99% 12/23/2020 11:02 AM EDT Inhaled Oxygen Concentration - - Weight 79.4 kg (175 lb) 03/07/2023 11:01 AM EDT Height 182.9 cm (6') 03/07/2023 11:01 AM EDT Body Mass Index 23.73 03/07/2023 11:01 AM EDT Plan of Treatment Health Maintenance Due Date Last Done Comments Hepatitis C Screening 1953 Depression Screening 1965 Preventative Health Evaluation 1971 Tobacco Cessation Counseling 1971 Colon Cancer Screening (Colonoscopy) 1998 Shingrix-Zoster Vaccine (1 o f 2) 2003 Abdominal Aortic Aneurysm (AAA) Screening 2018 Fall Risk Assessment 2018 Pneumococcal Vaccine (3 of 3 - PPSV23 or PCV20) 2018 04/20/2015, 07/09/2012 DTap / Tdap / Td (2 - Td or Tdap) 07/09/2022 07/09/2012 COVID-19 Vaccine (4 - 2023-2 5 season) 2024 08/22/2021, 12/14/2020, 11/23/2020 Influenza Vaccine (#1) 2024 RSV Adult > 60+ Yrs or (1 - 1-dose 75+ series) 02/14/2028 Hepatitis B Vaccines Aged Out No long er eligible based on patient's age to complete this topic RSV Ped < 20 months Aged Out No longe r eligible based on patient's age to complete this topic Care Teams Stewardess Supervisor Relationship Specialty Start Date End Date Steve Strange MD [address] [place] [id number] PCP - General Internal Medicine 02/21/23
== END ==
LOC: HO.SL 15:02
PROVIDERS: PCP Internal Medicine; Visit Provider Psychiatry & Neurology Neurology
DX: G47.31 Primary central sleep apnea (principal); R06.83 Snoring
CPT/HCPCS: 95806

== ENCOUNTER 2025-02-24 07:58 | Outpatient (AMB) | payer MEDICARE, SELFPAY ==
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
[2025-02-24 08:01] VITALS: BP 130/78; PULSE 70; O2SAT 98; BMI 23.7
== END 2025-02-24 08:39 | disposition home or self-care (01) ==
LOC: HO.HSMS 07:59
PROVIDERS: PCP Internal Medicine; Visit Provider Psychiatry & Neurology Neurology
DX: I69.354 Hemiplegia and hemiparesis following cerebral infarction affecting left non-dominant side (principal)
CPT/HCPCS: 99214; G2211

== ENCOUNTER → 2025-02-24 07:58 | Outpatient (BNVA) | payer MEDICARE, SELFPAY | PROVIDERS: PCP Internal Medicine; Visit Provider Psychiatry & Neurology Neurology | DX: Z86.73 Personal history of transient ischemic attack (TIA), and cerebral infarction without residual deficits (principal); Z79.82 Long term (current) use of aspirin; Z79.01 Long term (current) use of anticoagulants | CPT/HCPCS: 99212 ==